=== PATIENT | female | born 1945 | race Caucasian/White ===

== ENCOUNTER 2017-02-08 06:22 | Day surgery (SDC) | payer MEDICARE, OTHER ==
[~2017-02-08 06:22] MED LIST: ADVIL200 M3 PO; AMLODIPINE BESYL5 MG PO; CIPROFLOXACIN500 M3 PO; TOPROL XL25 M1 PO
[2017-02-08 07:35] LABS: BASO % 0.4 % (0-2); EOS % 0.3 % (0-7); HCT-HEMATOCRIT 43.4 % (34.0-49.0); HGB-HEMOGLOBIN 14.6 gm/dl (12.0-15.5); IMMATURE GRANULOCYTES ABSOLUTE 0.01 tho/cmm (0-0.03); IMMATURE GRANULOCYTES PERCENT 0.1 % (0-0.3); LYMPH % 11.2 % (20-45); MCH (MEAN CORPUSCULAR HGB) 30.1 pg (28.0-32.0); MCHC MEAN CORPUSCULAR HGB CONC 33.6 % (32.0-36.0); MCV (MEAN CELL VOLUME) 89.5 fl (82.0-96.0); MEAN PLATELET VOLUME 10.6 cmc (9.4-12.4); MONO % 5.2 % (0-12); MONOCYTE ABSOLUTE COUNT 0.5 tho/cmm (0.0-1.2); NEUTROPHIL ABSOLUTE COUNT 7.5 tho/cmm (1.6-8.0); NEUTROPHIL-AUTOMATED 7.5 tho/cmm (1.6-8.0); NEUTROPHILS % 82.8 % (40-80); PLATELET COUNT 281 tho/cmm (150-450); RED BLOOD COUNT 4.85 mil/cmm (4.00-5.20); RED CELL DISTRIBUTION WIDTH 13.1 % (12.4-16.4); WHITE BLOOD COUNT 9.1 tho/cmm (4.0-10.0)
[2017-02-08 07:44] LABS: PROTHROMBIN TIME 11.5 SECONDS (9.0-13.6)
[2017-02-15] MEDS ORDERED: MACROBID 100 M100 M1 PO (17:12)
[2017-02-15] MEDS ORDERED: LEXAPRO10 M2 PO (17:13)
== END 2017-02-08 14:20 ==
LOC: CTSCAN 06:22 → SHSB 06:25
PROVIDERS: Radiology Diagnostic Radiology
PROC: 0BBF3ZX Excision of Right Lower Lung Lobe, Percutaneous Approach, Diagnostic (ICD-10-PCS; principal; 2017-02-08)
DX: C7A.1 Malignant poorly differentiated neuroendocrine tumors (principal); Z79.1 Long term (current) use of non-steroidal anti-inflammatories (NSAID); Z79.2 Long term (current) use of antibiotics; Z79.899 Other long term (current) drug therapy; Z98.1 Arthrodesis status; Z98.890 Other specified postprocedural states
CPT/HCPCS: J2250; J3010; J7030

== ENCOUNTER 2017-02-17 08:01 | Day surgery (SDC) | payer MEDICARE, OTHER ==
[~2017-02-17 08:01] MED LIST changes: +LEXAPRO10 M2 PO; +MACROBID 100 M100 M1 PO
[2017-02-17 08:53] LABS: INR 0.9 INR (0.9-1.1); PROTHROMBIN TIME 10.6 SECONDS (9.0-13.6)
== END 2017-02-17 14:10 ==
LOC: NUCMED 08:01 → SHSB 08:04
PROVIDERS: Radiology Diagnostic Radiology
PROC: 05HM33Z Insertion of Infusion Device into Right Internal Jugular Vein, Percutaneous Approach (ICD-10-PCS; principal; 2017-02-17)
PROC: B513ZZA Fluoroscopy of Right Jugular Veins, Guidance (ICD-10-PCS; 2017-02-17)
DX: C34.31 Malignant neoplasm of lower lobe, right bronchus or lung (principal); I10 Essential (primary) hypertension; M19.90 Unspecified osteoarthritis, unspecified site; R10.9 Unspecified abdominal pain; Z98.51 Tubal ligation status; Z87.891 Personal history of nicotine dependence; Z79.899 Other long term (current) drug therapy; Z98.890 Other specified postprocedural states
CPT/HCPCS: A9503; A9577; C1788; J0690; J2250; J3010; J7030